=== PATIENT | male | born 1985 | race American Indian/Alaskan Native ===

== ENCOUNTER 2017-05-20 20:56 | Emergency (ER) | payer SELFPAY ==
[2017-05-20 21:49] VITALS: BP 160/75
[2017-05-20] MEDS ORDERED: PEPCID ONE (21:55)
[2017-05-20] MEDS ORDERED: BENADRYL ONE (21:56)
[2017-05-20] MEDS ORDERED: PEPCID PO ONE (22:02)
[2017-05-20] MEDS ORDERED: BENADRYL IV ONE (22:03)
== END 2017-05-20 23:40 | disposition left against medical advice (07) ==
LOC: ED 20:56
DX: R10.9 Unspecified abdominal pain (principal); L29.9 Pruritus, unspecified; Z53.21 Procedure and treatment not carried out due to patient leaving prior to being seen by health care provider
CPT/HCPCS: J1200; J2930